=== PATIENT | female | born 1970 | race Caucasian/White ===

== ENCOUNTER 2020-12-03 17:28 | Emergency (ER) | payer OTHER, MEDICAID ==
[2020-12-03] MEDS ORDERED: Sodium Chloride 0.9% 10 ML Syringe FLUSH PRN (17:41)
[2020-12-03] MEDS ORDERED: Iopamidol 612 MG/ML 100 ML Bottle IVPUSH ONE (17:46)
[2020-12-03] MEDS ORDERED: Iopamidol 612 MG/ML 50 ML SDV IVPUSH ONE (17:46)
[2020-12-03] MEDS ORDERED: Sodium Chloride 0.9% 10 ML Syringe FLUSH SCH (18:00)
--- NOTE | 2020-12-03 18:22 | CR ---
Chest: Portable view of the chest was obtained. Comparison: No prior chest imaging is available. Heart size and mediastinum are within normal limits. Lungs are clear. Bifid rib is noted within the left upper fourth rib. This causes slight rib deformity within the upper chest. No definite acute osseous abnormality is appreciated. Impression: 1. Finding which is felt to be incidental as noted above. 2. Nothing acute is appreciated on portable chest x-ray. Diagnostic code #2
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
--- NOTE | 2020-12-03 19:40 | CT ---
CT cervical spine Technique: Multiple axial sections were obtained from above C1 inferiorly to the top of T3. Reconstructed coronal and sagittal images were obtained. Findings: Severe disc space narrowing is noted at C4-5, C5-6, C6-7 and mild disc space narrowing at C7-T1. Disc space is obliterated at T1-2. Scattered degenerative apophyseal change is seen within the thoracic and upper visualized lumbar spine. There is no acute fracture being seen. Mild right-sided neural foraminal stenosis is noted at C4-5. Minimal right-sided neural foraminal stenosis is noted at C5-6. Other neural foramina are felt to be fairly well patent. No abnormal subluxation is appreciated. Scattered degenerative apophyseal change is seen throughout the cervical spine. Minimal scoliosis is noted. Visualized upper lungs are clear. Impression: 1. Diffuse degenerative change as noted above. 2. Nothing acute is appreciated on CT study of the cervical spine. Diagnostic code #2
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
--- NOTE | 2020-12-03 19:52 | CT ---
CT chest Technique: Multiple axial sections were obtained through the chest. Reconstructed coronal and sagittal images were obtained. Comparison: No prior intracranial imaging is available. Findings: Thoracic aorta shows no aneurysm. Mediastinum and hilar regions show no adenopathy or mass. No pericardial thickening is seen. Slight coronary artery calcification is noted. No pericardial thickening is appreciated. Lungs are clear with no acute parenchymal change. No pulmonary contusion, pleural effusions or pneumothorax are seen. Bone window settings were reviewed. No acute osseous abnormality is appreciated. Scattered degenerative change is seen within the spine. Impression: 1. Nothing acute is seen on CT study of the chest. Diagnostic code #2 CT abdomen and pelvis Technique: Multiple axial sections were obtained from above the dome of the diaphragm inferiorly through the pubic symphysis. Intravenous contrast was utilized. No oral contrast has been given. Delayed images were also obtained through the bladder. Reconstructed coronal and sagittal images were obtained. Comparison: No prior abdominal imaging is available. Findings: Liver shows no focal abnormality. Spleen is within normal limits. Adrenal glands appear within normal limits. Pancreas appears normal in configuration. Kidneys show symmetric contrast enhancement without hydronephrosis or mass. Gallbladder contains no calcified gallstones. Abdominal aorta shows atherosclerotic change. No aneurysm is seen. No retroperitoneal adenopathy or mesenteric abnormalities are seen. Appendix is seen which is normal. Minimal diverticuli are seen with no findings of diverticulitis. No free fluid is seen. Delayed images show contrast within the distal ureters and within the bladder. Bone window settings were reviewed which show degenerative change within the spine. No acute osseous abnormality is appreciated. Impression: 1. Findings as noted above. 2. Nothing acute is seen on CT study of the abdomen and pelvis. Diagnostic code #2
--- NOTE | 2020-12-03 19:52 | CT ---
CT thoracic spine Technique: Multiple axial sections through the thoracic spine were obtained. Reconstructed coronal and sagittal images were obtained. Findings: Scattered disc space narrowing is noted. Vertebral body heights are maintained. No abnormal subluxation is seen. Scattered degenerative apophyseal change is seen. Slight disc space narrowing within the upper thoracic spine as well as within the posterior elements are noted which is developmental. On the reconstructed sagittal images there is mild cortical irregularity seen within the anterior sternum which is suggestive of minimal incomplete fracture. Other portions of the thoracic spine show no fracture. No subluxation is seen. No central canal stenosis is noted. Impression: 1. Slight incomplete fracture within the upper sternum. 2. Degenerative change within the spine is seen. 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 3. No acute abnormality in seen within the thoracic spine. Diagnostic code #2
[2020-12-03] MEDS ORDERED: Acetaminophen 325 MG Tab PO ONE (20:03)
== END 2020-12-03 20:20 | disposition home or self-care (01) ==
LOC: JD.ED 17:28
DX: S22.20XA Unspecified fracture of sternum, initial encounter for closed fracture (principal); S81.812A Laceration without foreign body, left lower leg, initial encounter; S13.4XXA Sprain of ligaments of cervical spine, initial encounter; E78.00 Pure hypercholesterolemia, unspecified; I10 Essential (primary) hypertension; E11.9 Type 2 diabetes mellitus without complications; Z91.040 Latex allergy status; V49.40XA Driver injured in collision with unspecified motor vehicles in traffic accident, initial encounter
CPT/HCPCS: 36415; 70450; 71045; 71260; 72125; 72128; 74177; 80053; 80306; 80307; 85025; 99285; A9270; Q9967; 99284